=== PATIENT | female | born 1970 | race Caucasian/White ===

== ENCOUNTER 2016-10-31 15:15 | Emergency (ER) | payer OTHER ==
--- NOTE | 2016-10-31 15:12 | EDPHY ---
H & P Constitutional: Initial Vital Signs Temperature (C) 36.9 C 10/31/16 15:20 Heart Rate 93 10/31/16 15:20 Respiratory Rate 16 10/31/16 15:20 Blood Pressure 173/76 H 10/31/16 15:20 O2 Sat (%) 96 10/31/16 15:20 O2 Delivery Mode Room Air Allergies/Adverse Reactions: Penicillins Allergy (Verified 10/31/16 15:19) Home Medications: Medication Instructions Recorded EPINEPHrine [Epipen 0.3 MG (RX)] 0.3 mg IM ONCE #2 syr 10/31/16 Famotidine [Pepcid 20 MG (OTC)] 20 mg PO DAILY #10 tab 10/31/16 predniSONE 40 mg PO DAILY #10 tab 10/31/16 Medical Decision Making ED Course/Re-evaluation: CHIEF COMPLAINT: Allergic reaction HISTORY OF PRESENT ILLNESS: This patient is a 46 year old female arriving via EMS following an allergic reaction to multiple bee stings earlier today while hiking near [facility]. She was initially transported by private vehicle, and was hyperventilating and developing h[place] and her family summoned EMS. When crews arrived, they found her semi-responsive and breathing. She was noncyanotic and non-tachycardic, but hypotensive. Crews administered 0.3mg epinephrine and 50mg IV Benadryl in transport. Her vitals became stable, most recent blood pressure 120/80. She is currently shaky but responsive. No fever, chest pain, vomiting, or other associated symptoms. REVIEW OF SYSTEMS: A 10 point review of systems was performed and is negative with the exception of the elements mentioned in the history of present illness. PHYSICAL EXAM: HR, BP, O2 Sat, RR. Temp noted General Appearance: Alert, shaky, well hydrated, appropriate, and non-toxic appearing. Head: Atraumatic without scalp tenderness or obvious injury Eyes: Pupils equal, round, reactive to light and accommodation, EOMI, no trauma , no injection. Ears: Clear bilaterally, no perforation, normal landmarks Nose: Atraumatic, no rhinorrhea, clear. Throat: There is no erythema or exudates, no lesions, normal tonsils, mucus membranes moist. Neck: Supple, nontender, no lymphadenopathy. Respiratory: Tachypneic. No retractions, no distress, no wheezes, and no accessory muscle use. Lungs are clear to auscultation bilaterally. Cardiovascular: Regular rate and rhythm, no murmurs, rubs, or gallops. Bilateral carotid, radial, dorsalis pedis, and posterior tibial pulses intact. Good capillary refill all extremities. Gastrointestinal: Abdomen is soft, nontender, non-distended, no masses, no rebound, no guarding, no peritoneal signs. Musculoskeletal: Normal active ROM of all extremities, atraumatic. Neurological: Alert, appropriate, and interactive. Nonfocal neuro exam. Skin: Diffuse confluent hives. Multiple bee sting sites to her face and hands. Good turgor, no nodules on palpation. Past medical history: Anxiety Past surgical history: Noncontributory Family history: Noncontributory Social history: Family at bedside. Lives in [place]. . DIFFERENTIAL DIAGNOSIS: The differential diagnosis included but was not limited to angioedema, anaphylaxis, anaphylactoid reaction, urticarial reaction, and other infectious causes for skin rash. MEDICAL DECISION MAKIN:20 Met EMS at bedside. 46 year old female presents with allergic reaction secondary to multiple bee stings to her face and hands. Diffuse confluent hives present on physical examination. She is tachypneic but in no respiratory distress. The patient's vitals are currently stable. Her hypotensive period was more likely a vasovagal blood pressure drop than anaphylactic based on the patient's current presentation. She has already received 0.3mg IM Epinephrine, 50mg IV Benadryl. Plan to administer 10mg IV Decadron, 40mg IV Pepcid, and 1mg IV Ativan for continued symptom relief. Plan to administer DuoNeb breathing treatment. 16:00 Reassessed patient. She is feeling much better. Her breathing feels normal. She will be discharged home in good condition with prescriptions for Prednisone and Pepcid. She will take Benadryl as needed. She will follow up with her primary care physician in [place]. Return precautions discussed. The patient is comfortable with this plan. - Data Points Medications Given: Discontinued Medications Albuterol/Ipratropium (Duoneb) 3 ml IH EDNOW ONE Stop: 10/31/16 15:20 Last Admin: 10/31/16 15:45 Dose: 3 ml Dexamethasone (Decadron Injection) 10 mg IVP EDNOW ONE Stop: 10/31/16 15:20 Last Admin: 10/31/16 15:45 Dose: 10 mg Famotidine (Pepcid) 40 mg IVP EDNOW ONE Stop: 10/31/16 15:20 Last Admin: 10/31/16 15:38 Dose: 40 mg Lorazepam (Ativan Injection) 1 mg IVP EDNOW ONE Stop: 10/31/16 15:20 Last Admin: 10/31/16 15:37 Dose: 1 mg Departure - Departure Disposition: Home, Routine, Self-Care Clinical Impression: Allergic reaction Qualifiers: Encounter type: initial encounter Qualified Code(s): T78.40XA - Allergy, unspecified, initial encounter Condition: Good Instructions: Epinephrine (By injection), Anaphylaxis (ED), General Allergic Reaction (ED) Additional Instructions: 1. Follow up with your primary care physician this week for further management of your symptoms. We referred you to our primary care provider personal lines insurance advisor but you may follow up with your regular doctor in [place]. 2. Take your Prednisone and Pepcid as prescribed for the next five days. You may also take Benadryl as directed on the packaging as needed for continued allergic symptoms. Use your EpiPen in case of allergic emergency. 3. Return to the Emergency Department for shortness of breath, difficulty swallowing, difficulty breathing, worsening of rash, fever or other worsening of condition. Referrals: Patient,NotPresent [Primary Care Provider] - As per Instructions Andreas Calderon MD [Medical Doctor] - As per Instructions Prescriptions: EPINEPHrine [Epipen 0.3 MG (RX)] 0.3 mg IM ONCE #2 syr Famotidine [Pepcid 20 MG (OTC)] 20 mg PO DAILY #10 tab predniSONE 40 mg PO DAILY #10 tab Report Scribed for: Venkata Mandujano Report Scribed by: Charis Gaytan Date of Report: 10/31/16 Time of Report: 16:44
[2016-10-31] MEDS ORDERED: IPRATROPIUM/ALBUTEROL 3 ML DEYVIAL IH ONE (15:19)
[2016-10-31] MEDS ORDERED: FAMOTIDINE 20 MG/2 ML SDV IVP ONE (15:19)
[2016-10-31] MEDS ORDERED: DEXAMETHASONE 10 MG/ML VIAL IVP ONE (15:19)
[2016-10-31] MEDS ORDERED: LORazepam 2 MG/ML INJ IVP ONE (15:19)
[2016-10-31 15:22] VITALS: RESP 16; TEMP 98.4
[2016-10-31 16:26] VITALS: BP 129/71; PULSE 87; O2SAT 97
== END 2016-10-31 16:27 | disposition home or self-care (01) ==
LOC: EDUNIT#
DX: T78.40XA Allergy, unspecified, initial encounter (principal)
CPT/HCPCS: 96374; J1100; J2060